=== PATIENT | female | born 1980 | race Hispanic/Latino ===

== ENCOUNTER 2022-12-09 06:00 | Emergency (ER) | payer BC ==
[2022-12-09] MEDS ORDERED: ACETAMINOPHEN 500 MG TAB ONE (07:19)
--- OUTSIDE RECORDS SUMMARY | 2022-12-09 14:17 | XMS REPORT | Continuity of Care Document ---
:1980 Author Organization [facility] t Address [address] [place] [address] Care Team Providers Name Role Phone Constanza Manzano MD Primary Care Physician [phone] Constanza Manzano MD Attending Clinician [phone] Wagner Jeff MD Attending Clinician Iggy Bailey DO Attending Clinician AMELIA HUDSON Attending Clinician Unavailable LUNA BUITRAGO Attending Clinician Unavailable MELISSA MCDERMOTT Attending Clinician Unavailable ANTELMO GIBBONS Attending Clinician Unavailable WAGNER JEFF Admitting Clinician Unavailable Payers Payer Name Policy Type Policy Number Effective Date Expiration Date S ource Problems Condition Condition Condition Status Onset Resolution Last Treating Co mments Source Name Details Category Date Date Treatment Clinician Date History of History of Disease Active M ethodi IUFD IUFD 10-15 00:00: Hospita 00 l De De Disease Active Methodi Quervain's Quervain's 02-21 disease disease 00:00: Hospita (tenosynov (tenosynov 00 l itis) itis) Allergies, Adverse Reactions, Alerts Allergy Allergy Status Severity Reaction(s) Onset Inactive Treating Comm ents Source Name Type Date Date Clinician Morphine Propensi Active Hallucinatio Methodi ty to ns 10-23 adverse 00:00: Hospita reaction 00 l s to drug Amoxicil Propensi Active Hives Method i nate ty to 9-09 st adverse 00:00: Hospita reaction 00 l s to drug Latex Propensi Active Other (See Pt unsure M ethodi ty to Comments) 02-[address] adverse 00:00: reaction Hospita reaction 00 l s to drug Family History Family Member Diagnosis Comments Start Date Stop Date Source Natural father Cancer [facility] Natural father Lymphoma [facility] Maternal grandfather [facility] Maternal grandmother Hypertension [facility] Natural mother Hypertension [facility] Paternal grandfather [facility] Paternal grandmother [facility] Social History Social Habit Start Date Stop Date Quantity Comments Source Gender identity [facility] orientation [facility] History of Social 2022-10-15 2022-10-[address] function 00:00:00 00:00:00 Hospital Alcohol intake 2022-03-11 2022-03-11 Ex-drinker [facility] 00:00:00 00:00:00 (finding) Hospital Tobacco use and 2022-03-10 2022-03-10 Smokeless [facility] exposure 00:00:00 00:00:00 tobacco non-user Hospital Sex Assigned At [birth year] [facility] 00:00:00 00:00:00 Hospital Smoking Status Start Date Stop Date Source Never smoked tobacco [facility] Medications Ordered Filled Start Stop Current Ordering Indication Dosage Frequency Signature Comments Components Source Medication Medication Date Date Medication? Clinician (SIG) Name Name cholecalcif 2021-05- No 2000U QD Take 2,000 Methodi john, 0-18 10-[address] vitamin D3, 14:06: 00:00 mouth Hosp tesha 1,000 unit 08 :00 daily. l tablet doxylamine- 2021- No Metho di pyridoxine, 4-27 10-18 st vit B6, 00:00: 00:00 Hospita (DICLEGIS) 00 :00 l 10-10 mg tablet,delmar yed release (DR/EC) delayed release tablet Vital Signs Vital Name Observation Time Observation Value Comments Source Systolic blood 2022-10-15 17:45:00 112 mm[Hg] [facility] pressure Diastolic blood 2022-10-15 17:45:00 75 mm[Hg] [facility] pressure Heart rate 2022-10-15 17:45:00 68 /min [facility] Body height 2022-10-15 17:45:00 154.9 cm [facility] Body weight 2022-10-15 17:45:00 54.432 kg [facility] BMI 2022-10-15 17:45:00 22.67 kg/m2 [facility] Oxygen saturation in 2022-10-15 17:45:00 100 /min [facility] Arterial blood by Pulse oximetry Body temperature 2022-03-12 14:00:00 36.72 Geri [facility] Respiratory rate 2022-03-12 14:00:00 16 /min [facility] Procedures Procedure Date / Time Performing Clinician Source Performed CBC WITH PLATELET AND 2022-10-15 [facility] DIFFERENTIAL 18:59:00 Lord COMPREHENSIVE METABOLIC PANEL 2022-10-15 [facility] 18:59:00 Lord HGB A1C WITH EAG ESTIMATION 2022-10-15 [facility] 18:59:00 Lord LIPID PANEL 2022-10-15 [facility] pital 18:59:00 Lord VITAMIN D 25 HYDROXY LEVEL 2022-10-15 [facility] 18:59:00 Lord THYROID PANEL WITH TSH 2022-10-15 [facility] 18:59:00 Lord FL HYSTEROSALPINGOGRAM 2022-09-06 [facility] 21:28:49 HCG QUALITATIVE, SERUM SCREEN 2022-09-06 Hari Almendarez [facility] 19:23:00 Leeopher US BREAST CYST ASPIRATION 2022-06-04 [facility] LEFT 17:16:24 US BREAST COMPLETE BILATERAL 2022-05-[address] [facility] 21:31:06 MAMMO BREAST DIAGNOSTIC 2022-05-22 [facility] TOMOSYNTHESIS BILATERAL 21:21:47 CT ABDOMEN PELVIS W WO 2022-03-19 [facility] CONTRAST 20:55:30 CBC WITH PLATELET AND 2022-03-12 [facility] DIFFERENTIAL 11:26:00 ANESTHESIA EPIDURAL BLOCK 2022-03-11 Leo Iggy [facility] 13:48:42 Hans SURGICAL PATHOLOGY REQUEST 2022-03-11 [facility] 12:53:00 COVID-19 QUALITATIVE RT-PCR 2022-03-10 [facility] 21:[facility]:00 [place] SYPHILIS TREPONEMA SCREEN 2022-03-10 [facility] WITH RPR CONFIRMATION 19:22:00 [place] (REVERSE ALGORITHM) HEPATITIS B SURFACE ANTIGEN 2022-03-10 [facility] 19:22:00 [place] RPR 2022-03-10 [facility] 19:22:00 [place] ABO AND RH CONFIRMATION BY 2022-03-10 [facility] PROTOCOL 18:43:00 ZZCOVID-19 SEROLOGY PATIENT [facility]-03[facility] 17:46:00 [place] ZZCOVID-19 ANTI-SPIKE IGG 2022-03-10 [facility] ANTIBODY TITER 17:46:00 [place] CBC WITH PLATELET AND 2022-03-10 [facility] DIFFERENTIAL 17:25:00 [place] TOXOPLASMA GONDII ANTIBODY, 2022-03-10 Romulo [facility] IGG 17:21:00 [place] TOXOPLASMA IGM AB 2022-03-10 Romulo [facility] Ho spital 17:21:00 [place] RUBELLA AB IGG 2022-03-10 [facility] 17:21:00 [place] CYTOMEGALOVIRUS AB, IGG 2022-03-10 [facility] 17:21:00 [place] CYTOMEGALOVIRUS AB, IGM 2022-03-10 [facility] 17:21:00 [place] HSV TYPE 1/2 COMBINED AB, IGM 2022-03-10 [facility] 17:21:00 [place] HSV 1 & 2 IGG 2022-03-10 [facility] ital 17:21:00 [place] TYPE AND SCREEN, OBSTETRICAL 2022-03-10 [facility] PATIENT 17:21:00 [place] ZZHIV 1, 2 ANTIBODY 2022-03-10 [facility] 17:21:00 [place] FIBRINOGEN 2022-03-10 [facility] 17:21:00 [place] HEMOGLOBIN A1C 2022-03-10 [facility] 17:21:00 [place] KLEIHAUER-BETKE 2022-03-10 [facility] 17:21:00 [place] PARVOVIRUS B19 ANTIBODY, IGG 2022-03-10 [facility] AND IGM 17:21:00 [place] PARTIAL THROMBOPLASTIN TIME 2022-03-10 [facility] (PTT) 17:21:00 [place] PROTHROMBIN TIME WITH INR 2022-03-10 [facility] 17:21:00 [place] THYROID STIMULATING HORMONE 2022-03-10 [facility] 17:21:00 [place] US LIMITED 2022-03-10 [facility] 16:40:00 Edangi Plan of Care Planned Activity Planned Date Details Comments Source Future Scheduled 2022-11-28 INFLUENZA VACCINE Method [facility] Test 07:52:22 [code = INFLUENZA Hospital VACCINE] Future Scheduled 2022-11-28 BREAST CANCER [facility] Test 07:52:22 SCREENING [code = Hospital BREAST CANCER SCREENING] Future Scheduled 2022-11-28 Screening for [facility] Test 07:52:22 malignant Hospital neoplasm of cervix (procedure) [code = 570255685] Future Scheduled 2022-11-28 COVID-19 VACCINE Postponed from [facility] Test 07:52:22 (#1) [code = 03/16/1983 Hospital COVID-19 VACCINE (Patient Refused) (#1)] Encounters Start End Encounter Admission Attending Care Care Encounter Source Date/Time Date/Time Type Type Clinicians Facility Department ID 2022-10-15 2022-10-15 Office [facility], 1.2.840.1 [id number] Methodi 12:30:00 14:29:53 Visit Constanza 86654.1.[address] Lord 3.430.2.7 Hospit a .3.152231 l .8 2022-10-15 2022-10-15 Outpatient [facility] [id number] Gardner 00:00:00 00:00:[address] 2022-09-06 2022-09-06 [facility], 1.2.840.1 [id number] Methodi 14:00:00 23:59:00 Encounter Wagner Patti 25671.1.1 510 s t 3.430.2.7 Hospit a .3.342632 l .8 2022-09-06 2022-09-06 Travel 1.2.840.1 1.2.319.370 [id number] Methodi 00:00:00 00:00:[address] 3.430.2.7 0.2.7.3.698 Ho spita .3.231912 084.8 l .8 2022-09-06 2022-09-06 [facility] [id number] [place] 00:00:00 00:00:00 WAGNER [address] 2022-09-03 2022-09-03 Transcribe [facility] 1.2.840.1 [id number] Methodi 00:00:00 00:00:00 Orders Wagner Patti 96319.1.[address] 3.430.2.7 Hospit a .3.235018 l .8 2022-06-04 2022-06-04 [facility], 1.2.840.1 [id number] 2 [id number] Methodi 09:36:04 23:59:00 Encounter Wagner Patti 15293.1.1 354 s t 3.430.2.7 Hospit a .3.185254 l .8 2022-06-04 2022-06-04 Travel 1.2.840.1 1.2.454.211 [id number] Methodi 00:00:00 00:00:[address] 3.430.2.7 0.2.7.3.698 Ho spita .3.352440 084.8 l .8 2022-06-04 2022-06-04 Outpatient [facility] [id number] Gardner 00:00:00 00:00:00 WAGNER [address] 2022-05-22 2022-05-22 [facility], 1.2.840.1 [id number] Methodi 14:38:07 23:59:00 Encounter Wagner Patti 81374.1.1 312 s t 3.430.2.7 Hospit a .3.600949 l .8 2022-05-22 2022-05-22 [facility], 1.2.840.1 [id number] 2 [id number] Methodi 14:30:00 14:37:00 Encounter Wagner Patti 82156.1.1 311 s t 3.430.2.7 Hospit a .3.699957 l .8 2022-05-22 2022-05-22 Travel 1.2.840.1 1.2.448.973 [id number] Methodi 00:00:00 00:00:[address] 3.430.2.7 0.2.7.3.698 Ho spita .3.244883 084.8 l .8 2022-05-22 2022-05-22 Outpatient [facility] [id number] [place] 00:00:00 00:00:00 WAGNER [address] 2022-05-22 2022-05-22 Outpatient [facility] [id number] [place] 00:00:00 00:00:00 WAGNER [address] 2022-04-30 2022-04-30 Transcribe [facility], 1.2.840.1 [id number] Methodi 00:00:00 00:00:00 Orders Wagner Patti 33502.1.[address] 3.430.2.7 Hospit a .3.622260 l .8 2022-03-19 2022-03-19 [facility], 1.2.840.1 [id number] 2 [id number] Methodi 14:19:48 23:59:00 Encounter Wagner Patti 64184.1.1 145 s t 3.430.2.7 Hospit a .3.933895 l .8 2022-03-19 2022-03-19 Outpatient [facility] [id number] Gardner 00:00:00 00:00:00 WAGNER [address] 2022-03-18 2022-03-18 Travel 1.2.840.1 1.2.086.694 [id number] Methodi 00:00:00 00:00:[address] 3.430.2.7 0.2.7.3.698 Ho spita .3.747919 084.8 l .8 2022-03-18 2022-03-18 Transcribe [facility], 1.2.840.1 [id number] Methodi 00:00:00 00:00:00 Orders Wagner Patti 54959.1.[address] 3.430.2.7 Hospit a .3.096919 l .8 2022-03-10 2022-03-12 [facility], 1.2.840.1 [id number] 2 [id number] Methodi 10:25:00 13:45:00 Encounter Wagner Patti 56088.1.1 045 s t 3.430.2.7 Hospit a .3.275339 l .8 2022-03-10 2022-03-12 Inpatient [facility] 001 [id number] Gardner 00:00:00 00:00:[address] WAGNER [address] 2022-03-11 2022-03-11 Anesthesia Leo, 1.2.840.1 [id number] Methodi 08:22:00 13:10:00 Event Iggy 45232.1.[address] Hans 3.430.2.7 Hospit a .3.050067 l .8 2022-01-23 2022-01-23 Travel 1.2.840.1 1.2.807.460 [id number] Methodi 00:00:00 00:00:[address] 3.430.2.7 0.2.7.3.698 Ho spita .3.268595 084.8 l .8 2022-01-14 2022-01-14 Travel 1.2.840.1 1.2.145.154 [id number] Methodi 00:00:00 00:00:[address] 3.430.2.7 0.2.7.3.698 Ho spita .3.324500 084.8 l .8 2021-10-23 2021-10-24 Emergency [place], [facility] Raquel [id number] [place] 00:00:00 00:00:00 AMELIA 558 Me thodi 2021-10-15 2021-10-15 Outpatient [facility], [facility] [id number] [place] 00:00:00 00:00:00 CONSTANZA 885 Metho di 2021-07-16 2021-07-16 Outpatient FACKLER, [facility] [id number] [place] 00:00:00 00:00:00 LUNA 523 Method i 2021-07-16 2021-07-16 Outpatient KIRKWOOD, [facility] [id number] [place] 00:00:00 00:00:00 LUNA 772 Method i 2021-01-25 2021-01-26 Emergency MCDERMOTT, [facility] [id number] [place] 00:00:00 00:00:00 MELISSA 869 Method i 2020-11-21 2020-11-21 Outpatient [facility], [facility] [id number] [place] 00:00:00 00:00:00 WAGNER 167 Method i 2020-11-21 2020-11-21 Outpatient [facility], [facility] [id number] [place] 00:00:00 00:00:00 WAGNER 168 Method i 2020-11-21 2020-11-21 Outpatient BLESSING, [facility] [id number] [place] 00:00:00 00:00:00 CONSTANZA 475 Metho di 2020-11-15 2020-11-15 Outpatient [facility] [id number] [place] 00:00:00 00:00:[address] 2020-10-12 2020-10-12 Outpatient [facility] [id number] [place] 00:00:00 00:00:[address] 2020-02-22 2020-02-22 Outpatient [facility] [id number] [place] 00:00:00 00:00:[address] 2019-12-27 2019-12-27 Outpatient ANTELMO GIBBONS [facility] [id number] [place] 00:00:00 00:00:[address] 2019-12-27 2019-12-27 Outpatient ANTELMO GIBBONS [facility] [id number] [place] 00:00:00 00:00:[address] 2019-12-14 2019-12-14 Outpatient [facility] [id number] [place] 00:00:00 00:00:[address] Results Test Description Test Time Test Comments Results Result Comments Source Comprehensive metabolic panel 2022-10-17 12:28:00 Test Item Value Reference Range Interpretation Comme nts Glucose (test code = 69 mg/dL 65-99 Fastin g reference 2345-7) interval BUN (test code = 3094-0) 13 mg/dL 7-25 Creatinine (test code = 0.54 mg/dL 0.50-0.99 2160-0) eGFR (test code = 119 See_Comment [place] [address]-4) the CKD-EPI 202 1 equation. To ca lculate the new eGFR fr om a previous Creati nine or Cystatin Cresul t, go to https://www.kid iraida.org/ professionals/k doqi/gfr %5Fcalculator [Automated mess age] The system which ge nerated this result tra nsmitted reference range : > OR = 60 mL/min/1.73m 2. The reference range was not used to interpr et this result as normal/abnormal . BUN/creatinine ratio NOT APPLICABLE See_Comment [Aut omated message] (test code = 3097-3) The sys tem which generated this result transmitted ref erence range: 6 - 22 ( calc). The reference r carrie was not used to int erpret this result as normal/abnormal . Sodium (test code = 137 mmol/L 655-333 9832-2) Potassium (test code = 4.5 mmol/L 3.5-5.3 2823-3) Chloride (test code = 105 mmol/L 98-110 5-0) CO2 (test code = 2027-9) 22 mmol/L 20-32 Calcium (test code = 8.9 mg/dL 8.6-10.2 36938-4) Protein (test code = 7.1 g/dL 6.1-8.1 2885-2) Albumin, S (test code = 4.2 g/dL 3.6-5.1 1751-7) Globulin, total (test 2.9 See_Comment [Auto mated message] code = 96247-4) The system w [facility] generated this result transmitted ref erence range: 1.9 - 3. 7 g/dL (calc). The ref erence range was not u sed to interpret this result as normal/abnor mal. Albumin/globulin ratio 1.4 See_Comment [Aut omated message] (test code = 1759-0) The [facility] tem which generated this result transmitted ref erence range: 1.0 - 2. 5 (calc). The ref erence range was not u sed to interpret this result as normal/abnor mal. Total bilirubin (test 0.7 mg/dL 0.2-1.2 code = 1974-2) Alkaline phosphatase 41 U/L 31-125 (test code = 6768-6) AST (test code = 1920-8) 18 U/L 10-30 ALT (test code = 1742-6) 8 U/L 6-29 RAC (test code = RAC) Performing Organization Information: Site ID: RGA [facility]: [facility] Address: [address] [place] [phone] Director: Mario Parker [facility] [id number] 12:28:00 Test Item Value Reference Range Interpretation Comments Cholesterol, total 204 mg/dL <=200 H (test code = 2092-3) HDL cholesterol 67 mg/dL See_Comment [Automated (test code = 2085-01) message ] The system which generated this result transmitted reference range : > OR = 50. The reference range was not used to interpret this result as normal/abnormal . Triglycerides (test 76 mg/dL <=150 code = 2571-8) LDL cholesterol 120 mg/dL (calc) H Reference ra nge: calculated (test <100 Desira ble code = 09909-2) range <100 m g/dL for primary prevention; <70 mg/dL for patients with C HD or diabetic patients with > or = 2 CHD risk factors. LDL-C is now calculated using the Chandu calculation, which is a validated novel method providin g better accuracy than the Friedewald equation in the estimation of LDL-C. Edson S S et al. SOLOMON. 2013;310(19): 5934-9006 (http://educati on .[employer] .com/faq/AIH433 ) Cholesterol/HDL 3.0 See_Comment [Automated ratio (test code = message] The 9830-1) system which generated this result transmitted reference range : <5.0 (calc). Th e reference range was not used to interpret this result as normal/abnormal . Non-HDL cholesterol 137 See_Comment H For gali ents with (test code = diabetes plus 1 15174-7) major ASCVD ris k factor, treatin g to a non-HDL-C goal of <100 mg/dL (LDL-C of <70 mg/dL) is considered a therapeutic option. [Automated message] The system which generated this result transmitted reference range : <130 mg/dL (calc). The reference range was not used to interpret this result as normal/abnormal . RAC (test code = Performing RAC) Organization Information: Site ID: RGA Name: [facility] Lab Address: [address] [place] [phone] Director: Mario Parker Lab Interpretation Abnormal (test code = 50842-5) [facility] with platelet and [id number] 12:28:00 Test Item Value Reference Range Interpretation Comments WBC (test code = 6.8 See_Comment [Automated 5520-2) message] The system which generated this result transmitted reference range : 3.8 - 10.8 Thousand/uL. Th e reference range was not used to interpret this result as normal/abnormal . RBC (test code = 4.33 See_Comment [Automated 829-6) message] The system which generated this result transmitted reference range : 3.80 - 5.10 Million/uL. The reference range was not used to interpret this result as normal/abnormal . HGB (test code = 13.7 g/dL 11.7-15.5 718-7) HCT (test code = 41.2 % 35.0-45.0 4544-3) MCV (test code = 95.2 fL 80.0-100.0 787-2) MCH (test code = 31.6 pg 27.0-33.0 785-6) MCHC (test code = 33.3 g/dL 32.0-36.0 786-4) RDW (test code = 12.5 % 11.0-15.0 788-0) Platelet count 240 See_Comment [Automated (test code = message] The 777-3) system which generated this result transmitted reference range : 140 - 400 Thousand/uL. Th e reference range was not used to interpret this result as normal/abnormal . MPV (test code = 10.5 fL 7.5-12.5 776-5) Neutrophils, 4522 See_Comment [Automated absolute (test message] The code = 751-8) system which generated this result transmitted reference range : 1,500 - 7,800 cells/uL. The reference range was not used to interpret this result as normal/abnormal . Lymphocytes, 1700 See_Comment [Automated absolute (test message] The code = 731-0) system which generated this result transmitted reference range : 850 - 3,900 cells/uL. The reference range was not used to interpret this result as normal/abnormal . Monocytes, 510 See_Comment [Automated absolute (test message] The code = 742-7) system which generated this result transmitted reference range : 200 - 950 cells/uL. The reference range was not used to interpret this result as normal/abnormal . Eosinophils, 41 See_Comment [Automated absolute (test message] The code = 711-2) system which generated this result transmitted reference range : 15 - 500 cells/uL. The reference range was not used to interpret this result as normal/abnormal . Basophils, 27 See_Comment [Automated absolute (test message] The code = 704-7) system which generated this result transmitted reference range : 0 - 200 cells/u L. The reference range was not used to interpr et this result as normal/abnormal . Neutrophils (test 66.5 % code = 770-8) Lymphocytes (test 25.0 % code = 736-9) Monocytes (test 7.5 % code = 5905-5) Eosinophils (test 0.6 % code = 713-8) Basophils + RC 0.4 % (test code = 706-2) RAC (test code = Performing RAC) Organization Information: Site ID: [facility] Name: [facility] Address: [address] [place] [phone] Director: Mario Parker [facility] Center[facility] D 25 hydroxy [id number] 12:28:00 Test Item Value Reference Range Interpretation Comments Vitamin D, 25-hydroxy 26 ng/mL 30-100 L Vitami n D Status (test code = 1988-07) 25-OH V itamin D: Deficiency: <20 ng/mLInsufficie n cy: 20 - 29 ng/mLOptimal: > or = 30 ng/mL For 25-OH Vitamin D testing on patients on D2-supplementat i on and patients for whom quantitation of D2 and D3 fractions is required, the QuestAssureD(TM ) 25-OH VIT D, (D2,D3), LC/MS/MS is recommended: order code 9288 8 (patients >2yrs).See Note 1 Note 1 For additional information, please refer to http://educatio n .[employer]/faq/FAQ19 9 (This link is being provided for informational/e d ucational purposes only.) RAC (test code = RAC) Performing Organization Information: Site ID: A Name: [facility] Lab Address: [address] [place] [phone] Director: Mario Parker Lab Interpretation Abnormal (test code = 51740-8) [facility] With [id number] 12:28:00 Test Item Value Reference Range Interpretation Comments T3 uptake (test 31 % 22-35 code = 3050-2) T4 (test code = 7.2 See_Comment [Automated 3026-2) message] The sy stem which generated this result transmitted reference range : 5.1 - 11.9 mcg/ dL. The reference r carrie was not used to interpret this result as normal/abnormal . Free T4 index 2.2 1.4-3.8 (test code = 08552-9) TSH (test code 0.98 mIU/L Reference Ra nge > = 3016-3) or = 20 Years 0.40-4.50 Pregn brittany Ranges First trimester 0.26- 2.66 Second trimeste r 0.55-2.73 Third trimester 0.43- 2.91 RAC (test code Performing = RAC) Organization Information: Site ID: A Name: [facility] Address: [address] [place] [phone] Director: [facility]Ch[facility]ic[facility] HospitalHgb A[facility]c with eAG [id number] 12:28:00 Test Item Value Reference Range Interpretation Comments Hemoglobin A1C 4.8 See_Comment For the purpo se of (test code = screening for t he 4548-4) presence ofdiab etes: <5.7% Consisten t with the absence of diabetes5.7-6.4 % Consistent with increased risk for diabetes (prediabetes)> or =6.5% Consisten t with diabetes This a ssay result is consi stent with a decrease d riskof diabetes . Currently, no consensus exist s regarding use ofhemoglobin A1 c for diagnosis of di abetes in children. According to [place] Diabetes Associ ation (ADA)guidelines , hemoglobin A1c <7.0% represents optimalcontrol in non- di abetic patients. Differentmetric s may apply to specif ic patient populat ions. Standards of Mo dical Care in Diabetes(ADA). [Automated mess age] The system [employer] generated this result transmitted ref erence range: <5.7 % o f total Hgb. The reference range was not used to int erpret this result as normal/abnormal . Estimated 91 mg/dL average glucose (EAG) (test code = 65579-6) Estimated 5.0 mmol/L average glucose (EAG) (test code = 56227-7) RAC (test code = Performing RAC) Organization Information: Site ID: [facility]: [facility] Address: [address] [place] [id number] Director: Mario CastOhio State Harding Hospitalurgical pathology [id number] 22:31:19 Test Item Value Reference Range Interpretation Comments Case number (test code = [id number]) Surgical pathology See link below for report (test code = PDF Lab Report [id number]) Result status (test code This is Final Report = [id number]) [id number] [facility] [Presence] in Respiratory specimen by ANDERSON with probe [id number] 17:14:14 Test Item Value Reference Range Interpretation Comments SARS-CoV-2 (COVID-19) RNA Not detected [Presence] in Respiratory specimen by ANDERSON with probe detection (test code = 61214-2) Whether patient is employed in a Unknown healthcare setting (test code = 56144-9) Whether the patient has symptoms Unknown related to condition of interest (test code = 72709-7) Whether the patient was Unknown hospitalized for condition of interest (test code = 33745-5) Whether the patient was admitted Unknown to intensive care unit (ICU) for condition of interest (test code = 39048-0) Whether patient resides in a Unknown congregate care setting (test code = 20405-6) status (test code = Unknown 15091-2) Date and time of symptom onset Unknown (test code = 03614-7) [facility]
[2022-12-09 15:32] LABS: Specific Gravity 1.026 (1.005-1.030); Urine Bacteria >50 /HPF (<20); Urine Bilirubin NEGATIVE (Negative); Urine Blood Negative (Negative); Urine Clarity Extremely Turbid (Clear); Urine Color Yellow (Yellow); Urine Glucose NEGATIVE (Negative); Urine Mucus 3+ /HPF (None Seen); Urine Protein 1+ (Negative); Urine RBC <5 /HPF (None Seen); Urine Urobilinogen Normal (Normal); Urine pH 5.5 (5.0-7.0)
--- NOTE | 2022-12-09 16:42 | ER ---
Nurse's Notes [facility] Name: Dede Lawson Age: 42 yrs Sex: Female : 1980 Arrival Date: 12/09/2022 Time: 06:00 Bed 20 Private MD: Diagnosis: SARS-associated coronavirus as the cause of diseases classified elsewhere;UTI/ Urinary tract infection, site not specified Presentation: 12/09 06:11 Chief complaint: Patient states: cough, congestion, fever and headache since yesterday. rv RLQ abd pain with nausea since yesterday morning. Coronavirus screen: Vaccine status: Patient reports being unvaccinated. Ebola Screen: Patient negative for fever greater than or equal to 101.5 degrees Fahrenheit, and additional compatible Ebola Virus Disease symptoms Patient denies exposure to infectious person. Patient denies travel to an Ebola-affected area in the 21 days before illness onset. Initial Sepsis Screen: Does the patient meet any 2 criteria? No. Patient's initial sepsis screen is negative. Does the patient have a suspected source of infection? No. Patient's initial sepsis screen is negative. Risk Assessment: Do you want to hurt yourself or someone else? Patient reports no desire to harm self or others. Onset of symptoms was December 08, 2022. 06:11 Method Of Arrival: Ambulatory rv 06:11 Acuity: TAZ 3 rv Triage Assessment: 06:12 General: Appears uncomfortable, Behavior is cooperative. Pain: Complains of pain in rv head. Neuro: Level of Consciousness is awake, alert, obeys commands, Oriented to person, place, time, situation, Reports dizziness, headache. Cardiovascular: Capillary refill < 3 seconds. Respiratory: Reports cough that is Airway is patent Respiratory effort is even, unlabored. GI: Abdomen is flat, non-distended. : No signs and/or symptoms were reported regarding the genitourinary system. Derm: Skin is intact. 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 - Social history:: Smoking status: Patient denies any tobacco usage or history of. - Family history:: not pertinent. - Hospitalizations: : No recent hospitalization is reported. Screenin:13 [facility] ED Fall Risk Assessment (Adult) History of falling in the last 3 months, rv including since admission No falls in past 3 months (0 pts) Confusion or Disorientation No (0 pts) Intoxicated or Sedated No (0 pts) Impaired Gait No (0 pts) Mobility Assist Device Used No (0 pt) Altered Elimination No (0 pt) Score/Fall Risk Level 0 - 2 = Low Risk Oriented to surroundings, Maintained a safe environment, Educated pt \T\ family on fall prevention, incl call for assistance when getting out of bed, Assessed \T\ reinforced patient's understanding of fall precautions, Provided non-skid footwear, Hourly rounding (assess needs \T\ fall precautionary measures) done, Used ambulatory aids as needed (educated on \T\ assisted with), Used gait belt as appropriate. Abuse screen: Denies threats or abuse. Denies injuries from another. Nutritional screening: No deficits noted. Tuberculosis screening: No symptoms or risk factors identified. Assessment: 06:14 GI: Bowel sounds present X 4 quads. Abd is soft and non tender X 4 quads. rv 08:04 General: Appears uncomfortable, Behavior is cooperative, appropriate for age. Pain: sg5 Complains of pain in lower abdomen, head Pain currently is 6 out of 10 on a pain scale. Neuro: No deficits noted. Level of Consciousness is awake, alert, obeys commands, Oriented to person, place, time, situation, Appropriate for age. Cardiovascular: Capillary refill < 3 seconds Patient's skin is warm and dry. Respiratory: Airway is patent Trachea midline Respiratory effort is even, unlabored. : No signs and/or symptoms were reported regarding the genitourinary system. EENT: Reports cough, congestion. Derm: No signs and/or symptoms reported regarding the dermatologic system. Musculoskeletal: No signs and/or symptoms reported regarding the musculoskeletal system. Vital Signs: 06:11 BP 104 / 75; Pulse 98; Resp 18; Temp 99.1; Pulse Ox 100% ; Weight 53.52 kg; Height 5 rv ft. 4 in. ; Pain 10/10; 08:04 BP 114 / 70; Pulse 80; Resp 16; Pulse Ox 97% on R/A; Pain 6/10; sg5 09:21 BP 117 / 82; Pulse 72; Resp 16; Temp 99.1(O); Pulse Ox 97% on R/A; Pain 4/10; sg5 10:36 BP 101 / 70; Pulse 95; Resp 16; Pulse Ox 96% on R/A; sg5 06:11 Body Mass Index 20.25 (53.52 kg, 162.56 cm) rv 06:11 Pain Scale: Adult rv 08:04 Pain Scale: Adult sg5 09:21 Pain Scale: Adult sg5 ED Course: 06:00 Patient arrived in ED. ag3 06:12 Triage completed. rv 06:13 Arm band placed on right wrist. rv 06:14 Patient has correct armband on for positive identification. Allergy band placed. Placed rv in gown. Bed in low position. Call light in reach. Side rails up X 1. Adult w/ patient. Client placed on continuous cardiac and pulse oximetry monitoring. NIBP monitoring applied. 06:36 COVID swab sent to lab. Flu and/or RSV swab sent to lab. 5 07:01 Shanthi Miller, RN is Primary Nurse. sg5 07:02 Ilia Carpio MD is Attending Physician. rn 07:30 Notified ED physician of a critical lab result(s). covid +. ll1 10:42 Provided Education on: prescriptions, pain managment. sg5 10:42 No provider procedures requiring assistance completed. Patient did not have IV access sg5 during this emergency room visit. Administered Medications: 07:14 Drug: Acetaminophen PO 1000 mg Route: PO; sg5 Medication: 06:14 VIS not applicable for this client. rv Outcome: 10:28 Discharge ordered by . rn 10:42 Discharged to home ambulatory, with family. sg5 10:42 Condition: good 10:42 Discharge instructions given to patient, Instructed on discharge instructions, follow up and referral plans. 10:42 Patient left the ED. sg5 Signatures: Ilia Carpio MD MD rn Vicente, Ronaldo RN RN Lore Hammonds 3 Rubin Underwood RN RN 1 Shanthi Miller RN RN 5 Nimco Bell 5 Corrections: (The following items were deleted from the chart) 06:58 06:11 Chief complaint: Patient states: cough, congestion, fever and headache since rv yesterday. rv
--- NOTE | 2022-12-09 16:42 | EDPHYS ---
Physician Documentation [facility] Name: Dede Lawson Age: 42 yrs Sex: Female : 1980 Arrival Date: 12/09/2022 Time: 06:00 Bed 20 Private MD: ED Physician Ilia Carpio HPI: 12/09 07:47 This 42 yrs old Female presents to ER via Ambulatory with complaints of Fever, Nausea, rn Headache. 07:47 The patient reports fever, that was measured at 102 degrees Fahrenheit. Onset: The rn symptoms/episode began/occurred yesterday. Modifying factors: there are no obvious modifying factors. Associated signs and symptoms: Pertinent positives: chills, headache, myalgias, runny nose, sore throat, Pertinent negatives: altered mental status, chest pain, skin rash, shortness of breath. Severity of symptoms: At their worst the symptoms were moderate in the emergency department the symptoms are unchanged. The patient has not experienced similar symptoms in the past. The patient has not recently seen a physician. 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 - Social history:: Smoking status: Patient denies any tobacco usage or history of. - Family history:: not pertinent. - Hospitalizations: : No recent hospitalization is reported. 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 Head/Face: Normocephalic, atraumatic. Eyes: Periorbital areas with no swelling, redness, or edema. ENT: Dry MM Neck: No Meningismus. Cardiovascular: Regular rate and rhythm. No pulse deficits. Respiratory: No increased work of breathing, no retractions or nasal flaring. Abdomen/GI: Soft, non-tender Skin: Warm, dry MS/ Extremity: Pulses equal, no cyanosis. Neuro: Awake and alert, GCS 15, oriented to person, place, time, and situation. Cranial nerves II-XII grossly intact. Motor strength 5/5 in all extremities. Sensory grossly intact. Cerebellar exam normal. Vital Signs: 06:11 BP 104 / 75; Pulse 98; Resp 18; Temp 99.1; Pulse Ox 100% ; Weight 53.52 kg; Height 5 rv ft. 4 in. ; Pain 10/10; 08:04 BP 114 / 70; Pulse 80; Resp 16; Pulse Ox 97% on R/A; Pain 6/10; sg5 09:21 BP 117 / 82; Pulse 72; Resp 16; Temp 99.1(O); Pulse Ox 97% on R/A; Pain 4/10; sg5 10:36 BP 101 / 70; Pulse 95; Resp 16; Pulse Ox 96% on R/A; sg5 06:11 Body Mass Index 20.25 (53.52 kg, 162.56 cm) rv 06:11 Pain Scale: Adult rv 08:04 Pain Scale: Adult sg5 09:21 Pain Scale: Adult sg5 MDM: 07:02 Patient medically screened. rn 09:07 Differential diagnosis: viral Infection, bacterial infection, URI. Data reviewed: vital rn signs, nurses notes, lab test result(s), and as a result, I will discharge patient. 10:27 Counseling: I had a detailed discussion with the patient and/or guardian regarding: the rn historical points, exam findings, and any diagnostic results supporting the discharge/admit diagnosis, lab results, radiology results, the need for outpatient follow up, to return to the emergency department if symptoms worsen or persist or if there are any questions or concerns that arise at home. Special discussion: I discussed with the patient/guardian in detail that at this point there is no indication for admission to the hospital. It is understood, however, that if the symptoms persist or worsen the patient needs to return immediately for re-evaluation. ED course: COVID +, + UTI, will dc home with abx and return precautions.. Administered Medications: 07:14 Drug: Acetaminophen PO 1000 mg Route: PO; sg5 Disposition Summary: 12/09/22 10:28 Discharge Ordered Location: Home rn Problem: new rn Symptoms: have improved rn Condition: Stable rn Diagnosis - SARS-associated coronavirus as the cause of diseases classified elsewhere rn - UTI/ Urinary tract infection, site not specified rn Followup: rn - With: Private Physician - When: As needed - Reason: Recheck today's complaints, Re-evaluation by your physician Discharge Instructions: - Discharge Summary Sheet rn - Urinary Tract Infection, Adult rn - COVID-19 rn Forms: - Medication Reconciliation Form rn - Thank You Letter rn - 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 - Prescription Opioid Use rn - Patient Portal Instructions rn Prescriptions: - ondansetron 4 mg Oral Tablet,disintegrating - take 1 tablet by ORAL route every 8 hours As needed; 14 tablet; Refills: 0, rn Product Selection Permitted - Cipro 500 mg Oral Tablet - take 1 tablet by ORAL route every 12 hours for 10 days; 20 tablet; Refills: 0, rn Product Selection Permitted Signatures: Ilia Carpio MD MD rn Vicente, Ronaldo RN RN Israel Mccall RN RN as6 Shanthi Miller RN RN sg5 Corrections: (The following items were deleted from the chart) 10:28 10:27 ED course: No acute traumatic findings on CT imaging, UA neg, labs unremarkable, rn will dc home with return precautions. Notified of pulmonary nodule, will f/u.. rn
[2022-12-09 18:13] VITALS: TEMP 99.1
[2022-12-09 18:19] VITALS: BP 101/70; O2SAT 96
== END 2022-12-09 10:42 | disposition home or self-care (01) ==
LOC: ER 06:00
DX: U07.1 COVID-19 (principal); N39.0 Urinary tract infection, site not specified
CPT/HCPCS: 81001; 81025; 87070; 87081; 87086; 87088; 87635; 87804; 99284